=== PATIENT | female | born 1950 | race Caucasian/White ===

== ENCOUNTER 2018-04-13 05:30 | Inpatient (IN) | payer OTHER ==
[2018-04-13] VITALS (8 sets, daily range): BP systolic 140–177; BP diastolic 58–142
[~2018-04-13] VITALS: Ht 154.9 cm; Wt 115.7 kg
--- NOTE | ~2018-04-13 | PATH ---
[facility] [address] [place] [address] PATHOLOGY RPT PROCEDURE Name: JENNIFER FENTON Room #: 220-P ADM IN M.R.#: [id number] Admission: 04/13/18 Date of : 52 Discharge: Report #: [id number] Path Case #: [id number] [facility] Accession Number: [id number] . 01 Material submitted: . RIGHT WRIST TISSUE . 01 Clinical history: . Osteomyelitis. . 02 Diagnosis: "Right wrist tissue," debridement: - Fibroadipose connective tissue with acute and chronic inflammation, necrosis, and granulation tissue. - Decalcified bone with acute osteomyelitis. (CLW:mgady; 04/14/18) QRQ/04/14/2018 . 02 Electronically signed: . Susana Vitale MD, Pathologist NPI- [id number] . 01 Gross description: . Received fresh labeled "Jennifer Fenton, right wrist tissue" is a 2.0 x 1.8 x 0.3 cm aggregate of pink-tran soft tissue fragments and scant tran-white bony fragments. The specimen is submitted entirely in cassette A1 following decalcification. ([facility]; 04/13/2018) SYC/SYC . 02 Pathologist provided ICD-10: M86.141 . 02 CPT . 580721, 468331 Performed at: [address], [place] [id number] MD James Goldsmith MD Phone: [phone] Performed at: [address] [id number] MD Camille Maya MD Phone: [phone]
--- NOTE | ~2018-04-13 | EKG ---
[address] [address] ELECTROCARDIOGRAM REPORT Name: VIRAL FENTON Room #: 150-1 [facility]#: [id number] Admission: 04/13/18 Attend Phys: Zuly Hathaway, Discharge: Date of : 52 Report #: [id number] THIS REPORT FOR: //name// [facility] Test Date: 2018-04-13 Test Time: 06:23:49 Pat Name: VIRAL FENTON Department: Room: [facility] Gender: F Director Of Reservations: JAKE : 1950 Requested By: Zuly Hathaway Order Number: [id number] MD: Tez Plaza Measurements Intervals [place] Rate: 65 P: 50 OK: 152 QRS: 72 QRSD: 90 T: 34 QT: 434 QTc: 452 Interpretive Statements Sinus rhythm No significant abnormality No previous ECG available for comparison Electronically Signed On 04-13-2018 8:08:57 CDT by Tez Plaza [email or web address] <ELECTRONICALLY SIGNED> By: Tez Plaza MD, [facility] 04/13/18 0808 0623 2 Tez Plaza MD, FACC /EPI
--- NOTE | ~2018-04-13 | O ---
[facility] [place] [address] OPERATIVE REPORT Name: VIRAL FENTON Room #: 408-P [facility] M.R.#: [id number] Admission: 04/13/18 Attend Phys: Zuly Hathaway, Discharge: Date of : 52 Report #: [id number] THIS REPORT FOR: //name// CC: Jaden Dexter Hathaway DATE OF SERVICE: 04/13/2018 PREOPERATIVE DIAGNOSIS: Right possible septic wrist with osteomyelitis. POSTOPERATIVE DIAGNOSIS: Right possible septic wrist with osteomyelitis. PROCEDURE PERFORMED: Incision and debridement of skin, subcutaneous tissue, deep tissue and bone, right wrist. SURGEON: Zuly Hathaway MD ANESTHESIA: General mask anesthesia. ESTIMATED BLOOD LOSS: 5 mL. TOURNIQUET TIME: 43 minutes. SPECIMENS: Swab and tissue was sent to microbiology, tissue was sent to pathology. COMPLICATIONS: None. CONDITION: Stable. DISPOSITION: Recovery room. INDICATIONS: The patient is a 67-year-old female with the above-mentioned diagnosis. She elects for operative treatment. The risks, benefits, alternatives and complications were discussed that included but were not limited to infection, damage to blood vessels or nerves, stiffness, inability to resolve the infection necessitating more surgery or requirement of more surgery. Informed consent was obtained. The correct extremity was identified and labeled by myself after verbal confirmation of patient as well as visual confirmation and signed informed consent. DESCRIPTION OF PROCEDURE: The patient was brought back to the operating room and placed on the operating table in supine position. She did not receive preoperative antibiotics. She did receive antibiotics after the cultures were taken and the tourniquet was deflated. The right upper extremity was sterilely prepped and draped in usual fashion. A final timeout was taken to verify [facility] [address] [place] [address] OPERATIVE REPORT Name: VIRAL FENTON Sabine Room #: 408-P [facility] Rosemarie#: [id number] Admission: 04/13/18 Attend Phys: Zuly Hathaway, Discharge: Date of : 52 Report #: [id number] correct patient, operative procedure and operative site, all concurred. The arm was elevated, but was not exsanguinated and the tourniquet was inflated. Next, a 10 cm incision was made over the dorsal wrist. Dissection was carried down through subcutaneous tissue with tenotomy scissors. Bleeders were coagulated. The third compartment was identified and incised. The site of the fourth compartment was incised in a step-cut fashion. Next, a T-type capsulotomy was performed on the wrist. There was a boggy or brownish tissue and synovitis. This was completely debrided with a rongeur. The dorsal aspect of the lunate was fairly soft. It was debrided to a stable bone. The articular surface of the radius was almost completely absent and any soft bone was debrided with a combination of a rongeur and a curette. Next, the dorsal aspect of the capitate also was debrided to nice healthy bone. Any other areas that appeared to be infected were debrided thoroughly. Fluoroscopy was brought in to aid in debridement and 10 pounds of finger-trap traction was used to aid in the visualization. After thorough debridement was performed, the wound was irrigated with 3 liters of antibiotic saline using a Pulsavac and a 4th liter of antibiotic saline using an Asepto. Once this was clean, fluoroscopy was brought in and final PA and lateral views were taken. A deep drain was placed. It was sutured in place and no deep stitches were used due to the probable infection. Swab and tissue was sent off to microbiology and tissue was sent off to pathology. The wound was then closed with 4-0 nylon suture. The wound was infiltrated with approximately 10 mL of 0.25% Marcaine. She was placed in a bulky dressing and a volar slab splint. All fingers were pink with brisk capillary refill at the conclusion of the case. After deflation of the tourniquet, all sponge and needle counts were correct. The patient was transferred to postoperative recovery room in stable condition. By: 1208 1248 Zuly Hathaway MD /nt
[~2018-04-13 05:30] MED LIST: AMLODIPINE BESY10 MG PO; ELIQUIS5 MG PO; FLUOXETINE HCL40 MG PO; HYDROCHLOROTHIA25 M2 PO; LIORESAL 10 MG10 MG PO; LIPITOR 20 MG T20 M1 PO; LISINOPRIL40 MG PO; MOBIC7.5 MG PO; NORCO 10-325 T1 EACH PO; OMEPRAZOLE40 MG PO; POTASSIUM CHLO20 ME2 PO; SORINE 80 MG TA80 M1 PO; VITAMIN D1000 UNI1 PO
[2018-04-13 06:50] LABS: CALCIUM 10.3 mg/dL (8.5-10.1); POTASSIUM 3.5 mmol/L (3.5-5.1)
[2018-04-13 12:31] LABS: ALBUMIN 3.8 g/dL (3.4-5.0); TOTAL BILIRUBIN 0.5 mg/dL (<0.1-1.0)
[2018-04-14] VITALS: BP 126/75
[2018-04-14 03:50] LABS: ABSOLUTE NEUTROPHILS 10.8 thou/uL (1.4-8.2); BASOPHILS 0.4 % (0.0-2.0); HEMATOCRIT 34.8 % (37.0-47.0); HEMOGLOBIN 11.9 gm/dL (12.0-15.0); LYMPHOCYTES 5.8 % (24.0-44.0); MCH 27.8 pg (26.0-34.0); MCHC 34.2 g/dL (28.0-37.0); MCV 81.2 fL (80.0-100.0); MONOCYTES 5.6 % (1.0-8.0); PLATELET COUNT 229 thou/uL (150-400); POLYS 88.2 % (36.0-66.0); RBC 4.29 mil/uL (4.20-5.00); RDW 14.4 % (10.5-14.5); WBC 12.3 thou/uL (4.0-11.0)
[2018-04-14 04:00] VITALS: BP 141/54
[2018-04-14 04:03] LABS: CALCIUM 10.1 mg/dL (8.5-10.1); CREATININE 0.9 mg/dL (0.6-1.0); MAGNESIUM 1.4 mg/dL (1.8-2.4); POTASSIUM 3.4 mmol/L (3.5-5.1)
[2018-04-14 07:58] VITALS: BP 153/63
[2018-04-14 14:02] VITALS: BP 153/63
[2018-04-14 16:18] VITALS: BP 153/63
[2018-04-14] MEDS ORDERED: CEFAZOLIN1 GM/50 M1 IV (16:27)
[2018-04-14] MEDS ORDERED: ANCEF 1GM1 GM/50 M1 IVPB (16:35)
[2018-04-14 18:35] VITALS: BP 162/98
[2018-04-15 07:10] VITALS: BP 155/66
[2018-04-15 19:51] VITALS: BP 146/44
[2018-04-16 08:23] VITALS: BP 151/63
[2018-04-16 20:10] VITALS: BP 152/52
[2018-04-17 08:10] VITALS: BP 157/66
[2018-04-17 10:20] VITALS: BP 153/63
[2018-04-17 13:22] VITALS: BP 153/63
[2018-04-17 15:42] VITALS: BP 153/63
== END 2018-04-17 16:45 | disposition home health service (06) | DRG 511 ==
LOC: OR 05:30 → TBA 05:30 → OR 08:26 → 4N 08:26 → SICU 08:26 → 4N 08:26 → OR 09:08 → 4E 04-14 18:07 → SICU 04-14 18:16 → ENTRNSPT 04-17 16:20 → SICU 04-17 16:45
PROVIDERS: Nurse Practitioner; Orthopaedic Surgery Hand Surgery
PROC: 0PBH0ZZ Excision of Right Radius, Open Approach (ICD-10-PCS; 2018-04-13)
PROC: 05HY33Z Insertion of Infusion Device into Upper Vein, Percutaneous Approach (ICD-10-PCS; principal; 2018-04-14)
DX: M86.131 Other acute osteomyelitis, right radius and ulna (principal); Z68.42 Body mass index [BMI] 45.0-49.9, adult; I48.91 Unspecified atrial fibrillation; K57.90 Diverticulosis of intestine, part unspecified, without perforation or abscess without bleeding; G47.33 Obstructive sleep apnea (adult) (pediatric); I11.0 Hypertensive heart disease with heart failure; I50.9 Heart failure, unspecified; K21.9 Gastro-esophageal reflux disease without esophagitis; Z60.2 Problems related to living alone; E66.9 Obesity, unspecified; M06.9 Rheumatoid arthritis, unspecified; F32.9 Major depressive disorder, single episode, unspecified; E78.00 Pure hypercholesterolemia, unspecified; Z87.891 Personal history of nicotine dependence; Z79.01 Long term (current) use of anticoagulants; Z79.899 Other long term (current) drug therapy; Z90.49 Acquired absence of other specified parts of digestive tract